=== PATIENT | male | born 1985 | race Hispanic/Latino ===

== ENCOUNTER 2022-09-11 05:18 | Emergency (ER) | payer OTHER ==
[~2022-09-11] VITALS: Ht 170.2 cm; Wt 101.6 kg
[2022-09-11 05:48] LABS: BASOPHILS % (AUTO) 0.8 % (0.0-5.0); EOSINOPHILS % (AUTO) 1.6 % (0.0-8.0); HEMATOCRIT 45.4 % (42-54); LYMPHOCYTES % (AUTO) 9.9 % (21.0-51.0); MEAN CORPUSCULAR HEMOGLOBIN 30.8 pg (27.0-33.0); MEAN CORPUSCULAR HGB CONC 35.2 g/dL (32.0-36.0); MEAN CORPUSCULAR VOLUME 87.5 fL (79-99); MONOCYTES % (AUTO) 5.1 % (3.0-13.0); NEUTROPHILS % (AUTO) 81.8 % (40.0-77.0); PLATELET COUNT (AUTO) 267 K/uL (130-400); RED BLOOD CELL COUNT(AUTO) 5.19 MIL/uL (4.50-6.20); RED CELL DISTRIBUTION WIDTH 13.3 % (11.0-15.5)
[2022-09-11 05:59] LABS: POTASSIUM 4.1 mmol/L (3.5-5.1)
[2022-09-11] MEDS ORDERED: 0.9%NACL 1000ML 1,000 ML IV ONE (06:00)
[2022-09-11] MEDS ORDERED: MORPHINE 4 MG SYG IVP ONE (06:00)
[2022-09-11] MEDS ORDERED: ONDANSETRON 4MG INJ IVP ONE (06:00)
[2022-09-11 06:11] LABS: ALBUMIN 3.6 g/dL (3.5-5.0); TOTAL PROTEIN, SERUM 7.6 g/dL (6.0-8.3)
[2022-09-11] MEDS ORDERED: MORPHINE 4 MG SYG IVP SCH (08:30)
[2022-09-11] MEDS ORDERED: UNASYN 3GM VIAL IV ONE (10:30)
[2022-09-11] MEDS ORDERED: AMP/SULBAC 3GM+NS 100ML 100 ML IV SCH (11:00)
[2022-09-11] MEDS ORDERED: HYOS0.124 SL (11:01)
[2022-09-11] MEDS ORDERED: AMOX1TAB16 PO (11:01)
[2022-09-11 12:02] VITALS: BP 142/99
== END 2022-09-11 12:10 | disposition home or self-care (01) ==
LOC: EDH 05:18
DX: K57.30 Diverticulosis of large intestine without perforation or abscess without bleeding (principal); E78.00 Pure hypercholesterolemia, unspecified
CPT/HCPCS: 99285; 74176; 96374; 96361; 96375; 80053; 83690; 85025; 36415; 96376; J7030; J2405; J2270 ×2; J0295 ×2